=== PATIENT | male | born 1965 | race Caucasian/White ===

== ENCOUNTER 2021-01-14 08:02 | Inpatient (IN) | payer MEDICAID ==
[~2021-01-14] VITALS: Ht 170.2 cm; Wt 61.8 kg
[2021-01-14] MEDS ORDERED: SODIUM CHLORIDE 0.9% 2,000 ML IV ONE (08:15)
[2021-01-14] MEDS ORDERED: INSULIN REGULAR, HUMAN 100 UNITS/ML IVP ONE ×2 (08:15→11:45)
[2021-01-14 08:34] LABS: BASOPHILS % (AUTO) 0.7 % (0.0-2.0); EOSINOPHILS % (AUTO) 0 % (1.0-6.0); HEMATOCRIT 48.7 % (41-53); HEMOGLOBIN 13.6 g/dL (13.5-17.5); LYMPHOCYTES # (AUTO) 0.7 K/uL (1.0-4.8); LYMPHOCYTES % (AUTO) 3.5 % (22.0-44.0); MEAN CORPUSCULAR HEMOGLOBIN 30.7 pg (26.0-34.0); MEAN CORPUSCULAR HGB CONC 27.9 G/dL (31.0-37.0); MEAN CORPUSCULAR VOLUME 110 fL (80-100); MONOCYTES # (AUTO) 0.9 K/uL (0.1-1.0); MONOCYTES % (AUTO) 4.4 % (2.0-9.0); NEUTROPHILS # (AUTO) 19.2 K/uL (1.8-7.7); PLATELET COUNT (AUTO) 488 K/uL (150-450); RED BLOOD CELL COUNT(AUTO) 4.43 MIL/uL (4.50-5.90); RED CELL DISTRIBUTION WIDTH 16.4 % (11.5-14.5)
[2021-01-14] MEDS: OXYGEN THERAPY IH SCH ×2 (08:36→20:16)
[2021-01-14 08:40] LABS: NEUTROPHILS % (AUTO) 91.4 % (40.0-70.0)
[2021-01-14 08:52] LABS: ABG BASE EXCESS -21.2 mmol/L (-2.0-3.0); ABG CARBOXYHEMOGLOBIN 0.3 % (0.0-1.5); ABG HCO3 10.9 mmol/L (22.0-26.0); ABG METHEMOGLOBIN 0.3 % (0.0-1.5); ABG OXYGEN SATURATION 97.4 % (95.0-98.0); ABG OXYHEMOGLOBIN 96.8 % (94.0-100.0); ABG TOTAL HEMOGLOBIN 14.6 G/dL (12.0-18.0); PO2, ARTERIAL BG 122.7 mmHg (84.0-92.0); SOURCE, BLOOD GAS ARTERIAL; TEMPERATURE, FAHRENHEIT, BG 97.1 FAHREN (96.0-98.6)
[2021-01-14 08:55] LABS: ABG PH 7.209 (7.35-7.450)
[2021-01-14 08:56] LABS: ABG PCO2 18 mmHg (35-45); O2 DEVICE,BLOOD GAS ROOM AIR (ROOM AIR); SITE, BLOOD GAS RT RADIAL
[2021-01-14 08:58] LABS: LACTIC ACID 3.8 mmol/L (0.4-2.0)
[2021-01-14 09:00] LABS: CREATINE KINASE, TOTAL ONLY 62 U/L (39-308)
[2021-01-14 09:07] LABS: B-TYPE NATRIURETIC PEPTIDE 181 pg/mL (0-100)
[2021-01-14 09:16] LABS: LIPASE 4850 U/L (73-393)
[2021-01-14 09:23] LABS: ACETONE,BLOOD 1:16 (NEGATIVE)
[2021-01-14 09:27] LABS: ALANINE AMINOTRANSFERASE 21 U/L (12-78); ALBUMIN 2.7 g/dL (3.4-5.0); ALKALINE PHOSPHATASE 111 U/L (46-116); ANION GAP 41 mmol/L (8-16); ASPARTATE AMINOTRANSFERASE 17 U/L (15-37); BILIRUBIN,TOTAL 0.6 mg/dL (0.1-1.0); CALCIUM, TOTAL 10.7 mg/dL (8.8-10.5); CHLORIDE 110 mmol/L (98-107); GLOMERULAR FILTR. RATE CALC 21 mL/min (>60); POTASSIUM 4.2 mmol/L (3.5-5.1); SODIUM SERUM 159 mmol/L (136-145); TOTAL PROTEIN, SERUM 8.8 g/dL (6.4-8.2); UREA NITROGEN, BLOOD 78 mg/dL (7-18)
[2021-01-14 09:30] LABS: CARBON DIOXIDE 8 mmol/L (22-29)
[2021-01-14 09:47] LABS: GLUCOSE,RANDOM 1088 mg/dL (70-110)
[2021-01-14] MEDS ORDERED: 0.9% SODIUM CHLORIDE 10 ML SYRINGE IVP PRN (10:00)
[2021-01-14] MEDS ORDERED: ONDANSETRON HCL 4 MG/2 ML VIAL IVP PRN ×2 (10:00→11:00)
[2021-01-14] MEDS ORDERED: LORazepam 2 MG/ML VIAL IVP PRN (10:00)
[2021-01-14] MEDS ORDERED: SODIUM CHLORIDE 0.45% 1,000 ML IV ONE (10:00)
[2021-01-14 10:47] LABS: FREE T4 (FREE THYROXINE) 1.16 ng/dL (0.76-1.46); THYROID STIMULATING HORMONE 0.11 uIU/mL (0.36-3.74)
[2021-01-14 10:52] LABS: COVID AG,FIA SOURCE NASOPHARYNGEAL
[2021-01-14] MEDS ORDERED: INSULIN LISPRO 100 UNITS/ML SQ PRN (11:00)
[2021-01-14] MEDS ORDERED: BISACODYL 10 MG RECTAL RECTAL SUPPOSITORY PR PRN (11:00)
[2021-01-14] MEDS ORDERED: DEXTROSE 50%-WATER 25 GM/50 ML SYRINGE IVP PRN (11:00)
[2021-01-14 11:01] LABS: APPEARANCE,URINE TURBID (CLEAR); BILIRUBIN,URINE PRELIM. POSITIVE (NEGATIVE); GLUCOSE, URINE (UA) >=1000 mg/dL (NEGATIVE); KETONES,URINE 15 mg/dL (NEGATIVE); LEUKOCYTE ESTERASE ,URINE MODERATE (NEGATIVE); NITRATE,URINE NEGATIVE (NEGATIVE); OCCULT BLOOD,URINE MODERATE (NEGATIVE); PROTEIN,URINE SEE CONFIRM (NEGATIVE); UROBILINOGEN,URINE 0.2 mg/dL (<=1.0)
[2021-01-14 11:05] LABS: AMPHET/METH SCREEN,URINE NEGATIVE (NEGATIVE); BARBITURATE SCREEN, URINE NEGATIVE (NEGATIVE); BENZODIAZEPINES SCREEN,URINE NEGATIVE (NEGATIVE); CANNABINOID SCREEN,URINE NEGATIVE (NEGATIVE); COCAINE SCREEN,URINE NEGATIVE (NEGATIVE); METHADONE SCREEN, URINE NEGATIVE (NEGATIVE); OPIATE SCREEN,URINE NEGATIVE (NEGATIVE)
[2021-01-14 11:07] LABS: PHENCYCLIDINE SCREEN,URINE NEGATIVE (NEGATIVE)
[2021-01-14 11:09] LABS: SULFOSALICYLIC ACID,URINE 3+ (Negative)
[2021-01-14 11:10] LABS: BACTERIA,URINE Many /HPF (None Seen); WBC,URINE >100 /HPF (0-5)
[2021-01-14 11:20] LABS: GLUCOMETER DEV NAME(LOC) ERT.5; GLUCOSE,POINT OF CARE > 600 MG/DL (70-110)
[2021-01-14] MEDS ORDERED: CefTRIAXone 1 GM/DEXTROSE 50 ML IV ONE (11:30)
[2021-01-14] MEDS ORDERED: AZITHROMYCIN 500 MG/NS 250 ML IV ONE (11:30)
[2021-01-14] MEDS: PANTOPRAZOLE SODIUM 40 MG/VIAL IVP SCH (11:42)
[2021-01-14] MEDS: SODIUM CHLORIDE 0.45% 1,000 ML IV SCH ×2 (11:43→21:00)
[2021-01-14] MEDS ORDERED: SODIUM CHLORIDE 0.9% 1,000 ML IV SCH (11:45)
[2021-01-14] MEDS ORDERED: DEXTROSE 5%-0.45% SODIUM CHL 1,000 ML IV PRN (11:45)
[2021-01-14] MEDS ORDERED: SODIUM CHLORIDE 0.45% 1,000 ML IV PRN (11:45)
[2021-01-14] MEDS: INSULIN REGULAR, HUMAN 100 UNITS in SODIUM CHLORIDE 0.9% 99 ML IV PRN ×4 (12:10→20:15)
[2021-01-14] MEDS: POTASSIUM CHL 20 MEQ/0.45% NS 1,000 ML IV PRN (12:13)
[2021-01-14 12:18] LABS: CALCIUM, TOTAL 9.2 mg/dL (8.8-10.5); CREATININE 2.81 mg/dL (0.60-1.30)
[2021-01-14] MEDS: INSULIN REGULAR, HUMAN 100 UNITS/ML IVP PRN ×4 (12:40→16:41)
[2021-01-14 12:48] LABS: GLUCOMETER DEV NAME(LOC) ERT.5; GLUCOSE,POINT OF CARE 547 MG/DL (70-110)
[2021-01-14 13:11] LABS: GLUCOMETER DEV NAME(LOC) ERT.5; GLUCOSE,POINT OF CARE 590 MG/DL (70-110)
[2021-01-14 14:45] LABS: GLUCOMETER DEV NAME(LOC) ERT.5; GLUCOSE,POINT OF CARE 431 MG/DL (70-110)
[2021-01-14 16:00] VITALS: BP 105/71
[2021-01-14 16:13] LABS: CALCIUM, TOTAL 9.5 mg/dL (8.8-10.5); CREATININE 2.72 mg/dL (0.60-1.30); POTASSIUM 3.1 mmol/L (3.5-5.1)
[2021-01-14] MEDS: POTASSIUM CHLORIDE 40 MEQ in SODIUM CHLORIDE 0.45% 1,000 ML IV PRN (17:36)
[2021-01-14 18:15] LABS: GLUCOSE,POINT OF CARE 201 MG/DL (70-110)
[2021-01-14 18:15] LABS: GLUCOSE,POINT OF CARE 307 MG/DL (70-110)
[2021-01-14 18:15] LABS: GLUCOSE,POINT OF CARE 371 MG/DL (70-110)
[2021-01-14 20:00] VITALS: BP 127/85
[2021-01-14 20:04] LABS: GLUCOSE,POINT OF CARE 137 MG/DL (70-110)
[2021-01-14 20:06] LABS: CALCIUM, TOTAL 9.6 mg/dL (8.8-10.5); CREATININE 2.63 mg/dL (0.60-1.30); POTASSIUM 3.5 mmol/L (3.5-5.1)
[2021-01-14] MEDS: HEPARIN SODIUM,PORCINE 5,000 UNITS/ML VIAL SQ SCH (20:06)
[2021-01-14] MEDS ORDERED: DEXTROSE 50%-WATER 25 GM/50 ML SYRINGE IVP ONE (21:30)
[2021-01-14 21:44] LABS: CREATININE,URINE RANDOM 129.9 mg/dL (30.0-125.0)
[2021-01-14] MEDS: DEXTROSE 5%-WATER 1,000 ML IV SCH (22:01)
[2021-01-14] MEDS: ETHYL ALCOHOL 62% ANTISEPTIC NASAL INHALANT 0.6 ML AMPUL NASAL SCH (22:02)
[2021-01-14 22:52] LABS: GLUCOSE,POINT OF CARE 89 MG/DL (70-110)
[2021-01-14 22:52] LABS: GLUCOSE,POINT OF CARE 79 MG/DL (70-110)
[2021-01-15] VITALS: BP 129/76
[2021-01-15 00:47] LABS: GLUCOSE,POINT OF CARE 155 MG/DL (70-110)
[2021-01-15 02:19] LABS: CREATININE 2.67 mg/dL (0.60-1.30); POTASSIUM 4.2 mmol/L (3.5-5.1)
[2021-01-15] MEDS: POTASSIUM CHLORIDE 40 MEQ in SODIUM CHLORIDE 0.45% 1,000 ML IV PRN (02:28)
[2021-01-15 04:00] VITALS: BP 139/88
[2021-01-15] MEDS: DEXTROSE 5%-WATER 1,000 ML IV SCH ×4 (05:18→15:40)
[2021-01-15] MEDS: DEXTROSE 50%-WATER 25 GM/50 ML SYRINGE IVP PRN ×2 (05:58→23:54)
[2021-01-15 08:00] VITALS: BP 126/75
[2021-01-15 08:18] LABS: GLUCOSE,POINT OF CARE 184 MG/DL (70-110)
[2021-01-15 08:18] LABS: GLUCOSE,POINT OF CARE 92 MG/DL (70-110)
[2021-01-15 08:18] LABS: GLUCOSE,POINT OF CARE 113 MG/DL (70-110)
[2021-01-15 08:18] LABS: GLUCOSE,POINT OF CARE 135 MG/DL (70-110)
[2021-01-15 08:18] LABS: GLUCOSE,POINT OF CARE 191 MG/DL (70-110)
[2021-01-15 08:18] LABS: GLUCOSE,POINT OF CARE 70 MG/DL (70-110)
[2021-01-15 08:18] LABS: GLUCOSE,POINT OF CARE 172 MG/DL (70-110)
[2021-01-15 08:18] LABS: GLUCOSE,POINT OF CARE 144 MG/DL (70-110)
[2021-01-15] MEDS: PANTOPRAZOLE SODIUM 40 MG/VIAL IVP SCH (08:25)
[2021-01-15] MEDS: HEPARIN SODIUM,PORCINE 5,000 UNITS/ML VIAL SQ SCH ×2 (08:26→21:03)
[2021-01-15] MEDS: ETHYL ALCOHOL 62% ANTISEPTIC NASAL INHALANT 0.6 ML AMPUL NASAL SCH ×2 (08:26→21:03)
[2021-01-15 08:43] LABS: ALBUMIN 1.9 g/dL (3.4-5.0); BILIRUBIN,TOTAL 0.2 mg/dL (0.1-1.0); CALCIUM, TOTAL 8.9 mg/dL (8.8-10.5); CREATININE 2.55 mg/dL (0.60-1.30); MAGNESIUM 2.8 mg/dL (1.80-2.40); PHOSPHORUS 1.8 mg/dL (2.5-4.9); POTASSIUM 4.7 mmol/L (3.5-5.1); TOTAL PROTEIN, SERUM 6.8 g/dL (6.4-8.2)
[2021-01-15 09:14] LABS: GLUCOSE,POINT OF CARE 194 MG/DL (70-110)
[2021-01-15] MEDS: POTASSIUM CHL 20 MEQ/0.45% NS 1,000 ML IV PRN (09:17)
[2021-01-15 12:00] VITALS: BP 146/88
[2021-01-15 12:29] LABS: CALCIUM, TOTAL 8.8 mg/dL (8.8-10.5); CREATININE 2.4 mg/dL (0.60-1.30)
[2021-01-15] MEDS: CefTRIAXone 1 GM/DEXTROSE 50 ML IV SCH (13:32)
[2021-01-15 16:00] VITALS: BP 133/88
[2021-01-15 16:42] LABS: CALCIUM, TOTAL 8.6 mg/dL (8.8-10.5); CREATININE 2.34 mg/dL (0.60-1.30); POTASSIUM 4.6 mmol/L (3.5-5.1)
[2021-01-15 18:20] LABS: GLUCOSE,POINT OF CARE 87 MG/DL (70-110)
[2021-01-15 18:20] LABS: GLUCOSE,POINT OF CARE 112 MG/DL (70-110)
[2021-01-15 18:20] LABS: GLUCOSE,POINT OF CARE 71 MG/DL (70-110)
[2021-01-15 18:20] LABS: GLUCOSE,POINT OF CARE 107 MG/DL (70-110)
[2021-01-15 18:20] LABS: GLUCOSE,POINT OF CARE 132 MG/DL (70-110)
[2021-01-15 18:20] LABS: GLUCOSE,POINT OF CARE 74 MG/DL (70-110)
[2021-01-15 19:43] LABS: GLUCOSE,POINT OF CARE 130 MG/DL (70-110)
[2021-01-15 20:00] VITALS: BP 132/88
[2021-01-15 20:08] LABS: GLUCOSE,POINT OF CARE 167 MG/DL (70-110)
[2021-01-15 20:08] LABS: GLUCOSE,POINT OF CARE 190 MG/DL (70-110)
[2021-01-15 20:08] LABS: GLUCOSE,POINT OF CARE 138 MG/DL (70-110)
[2021-01-15 20:08] LABS: GLUCOSE,POINT OF CARE 205 MG/DL (70-110)
[2021-01-15 20:08] LABS: GLUCOSE,POINT OF CARE 170 MG/DL (70-110)
[2021-01-15 20:40] LABS: CALCIUM, TOTAL 9.1 mg/dL (8.8-10.5); CREATININE 2.25 mg/dL (0.60-1.30); POTASSIUM 3.8 mmol/L (3.5-5.1)
[2021-01-16] VITALS (7 sets, daily range): BP systolic 114–146; BP diastolic 65–91
[2021-01-16 01:23] LABS: CALCIUM, TOTAL 8.4 mg/dL (8.8-10.5); CREATININE 2.08 mg/dL (0.60-1.30); POTASSIUM 4.3 mmol/L (3.5-5.1)
[2021-01-16] MEDS ORDERED: INSULIN GLARGINE,HUM.REC.ANLOG 100 UNITS/ML SQ ONE (02:15)
[2021-01-16 05:23] LABS: GLUCOSE,POINT OF CARE 62 MG/DL (70-110)
[2021-01-16 05:23] LABS: GLUCOSE,POINT OF CARE 299 MG/DL (70-110)
[2021-01-16 05:23] LABS: GLUCOSE,POINT OF CARE 285 MG/DL (70-110)
[2021-01-16 05:23] LABS: GLUCOSE,POINT OF CARE 172 MG/DL (70-110)
[2021-01-16 05:23] LABS: GLUCOSE,POINT OF CARE 327 MG/DL (70-110)
[2021-01-16 06:27] LABS: CALCIUM, TOTAL 8.3 mg/dL (8.8-10.5); CREATININE 2.03 mg/dL (0.60-1.30)
[2021-01-16] MEDS: PANTOPRAZOLE SODIUM 40 MG/VIAL IVP SCH (08:14)
[2021-01-16] MEDS: ETHYL ALCOHOL 62% ANTISEPTIC NASAL INHALANT 0.6 ML AMPUL NASAL SCH ×2 (08:14→20:58)
[2021-01-16] MEDS: HEPARIN SODIUM,PORCINE 5,000 UNITS/ML VIAL SQ SCH ×2 (08:15→20:57)
[2021-01-16 08:59] LABS: HEMATOCRIT 40.3 % (41-53); HEMOGLOBIN 12.8 g/dL (13.5-17.5); MEAN CORPUSCULAR HEMOGLOBIN 30.5 pg (26.0-34.0); MEAN CORPUSCULAR HGB CONC 31.8 G/dL (31.0-37.0); MEAN CORPUSCULAR VOLUME 96 fL (80-100); MONOCYTES # (AUTO) 0.4 K/uL (0.1-1.0); PLATELET COUNT (AUTO) 212 K/uL (150-450); RED CELL DISTRIBUTION WIDTH 15.3 % (11.5-14.5)
[2021-01-16 10:00] LABS: BASOPHILS % (AUTO) 0.3 % (0.0-2.0); EOSINOPHILS % (AUTO) 0.6 % (1.0-6.0); LYMPHOCYTES % (AUTO) 7.3 % (22.0-44.0); MONOCYTES % (AUTO) 2.8 % (2.0-9.0); NEUTROPHILS # (AUTO) 12.3 K/uL (1.8-7.7)
[2021-01-16 10:08] LABS: CALCIUM, TOTAL 8.7 mg/dL (8.8-10.5); CREATININE 1.91 mg/dL (0.60-1.30); POTASSIUM 4.2 mmol/L (3.5-5.1)
[2021-01-16] MEDS ORDERED: DEXTROSE 50%-WATER 25 GM/50 ML SYRINGE IVP PRN (10:15)
[2021-01-16] MEDS: INSULIN GLARGINE,HUM.REC.ANLOG 100 UNITS/ML SQ SCH ×2 (11:29→20:58)
[2021-01-16] MEDS: INSULIN LISPRO 100 UNITS/ML SQ PRN ×2 (11:30→17:27)
[2021-01-16] MEDS ORDERED: SODIUM CHLORIDE 0.9% 1,000 ML ONE (11:46)
[2021-01-16] MEDS: CefTRIAXone 1 GM/DEXTROSE 50 ML IV SCH (11:50)
[2021-01-16] MEDS: SODIUM CHLORIDE 38.5 MEQ in WATER FOR INJECTION,STERILE 1,000 ML IV SCH ×2 (11:51→22:59)
[2021-01-16] MEDS ORDERED: SODIUM CHLORIDE 0.9% 250 ML IV ONE ×2 (11:52→18:31)
[2021-01-16 14:02] LABS: CALCIUM, TOTAL 8.7 mg/dL (8.8-10.5); CREATININE 1.87 mg/dL (0.60-1.30); POTASSIUM 3.7 mmol/L (3.5-5.1)
[2021-01-16] MEDS ORDERED: VANCOMYCIN HCL 1 GM/D5% WATER 200 ML IV ONE (17:15)
[2021-01-16 17:42] LABS: CALCIUM, TOTAL 8.8 mg/dL (8.8-10.5); CREATININE 1.82 mg/dL (0.60-1.30)
[2021-01-16 21:11] LABS: CALCIUM, TOTAL 8.7 mg/dL (8.8-10.5); CREATININE 1.75 mg/dL (0.60-1.30); POTASSIUM 3.8 mmol/L (3.5-5.1)
[2021-01-16] MEDS: ACETAMINOPHEN 325 MG TABLET PO PRN (23:35)
[2021-01-17] VITALS (7 sets, daily range): BP systolic 101–131; BP diastolic 64–87
[2021-01-17 00:28] LABS: CALCIUM, TOTAL 8.7 mg/dL (8.8-10.5); CREATININE 1.64 mg/dL (0.60-1.30); POTASSIUM 3.6 mmol/L (3.5-5.1)
[2021-01-17] MEDS: INSULIN LISPRO 100 UNITS/ML SQ PRN ×3 (05:38→17:40)
[2021-01-17 07:26] LABS: CALCIUM, TOTAL 9.7 mg/dL (8.8-10.5); CREATININE 1.66 mg/dL (0.60-1.30); POTASSIUM 3.5 mmol/L (3.5-5.1)
[2021-01-17] MEDS: VANCOMYCIN HCL 1 GM/D5% WATER 200 ML IV SCH (08:28)
[2021-01-17] MEDS: PANTOPRAZOLE SODIUM 40 MG/VIAL IVP SCH (08:31)
[2021-01-17] MEDS: HEPARIN SODIUM,PORCINE 5,000 UNITS/ML VIAL SQ SCH ×2 (08:31→21:30)
[2021-01-17] MEDS: INSULIN GLARGINE,HUM.REC.ANLOG 100 UNITS/ML SQ SCH ×4 (08:38→22:08)
[2021-01-17] MEDS: SODIUM CHLORIDE 38.5 MEQ in WATER FOR INJECTION,STERILE 1,000 ML IV SCH (08:39)
[2021-01-17] MEDS: ETHYL ALCOHOL 62% ANTISEPTIC NASAL INHALANT 0.6 ML AMPUL NASAL SCH ×2 (08:39→21:30)
[2021-01-17] MEDS: ACETAMINOPHEN 325 MG TABLET PO PRN (08:39)
[2021-01-17 08:48] LABS: GLUCOMETER DEV NAME(LOC) 5S.2B; GLUCOSE,POINT OF CARE 333 MG/DL (70-110)
[2021-01-17] MEDS ORDERED: INSULIN GLARGINE,HUM.REC.ANLOG 100 UNITS/ML SQ SCH (09:00)
[2021-01-17] MEDS ORDERED: SODIUM CHLORIDE 0.9% 100 ML ONE (09:06)
[2021-01-17 10:09] LABS: CALCIUM, TOTAL 8.9 mg/dL (8.8-10.5); CREATININE 1.5 mg/dL (0.60-1.30); POTASSIUM 3.3 mmol/L (3.5-5.1)
[2021-01-17] MEDS: POTASSIUM CHL 10 MEQ/WATER 50 ML IV SCH ×4 (12:56→18:02)
[2021-01-17 14:11] LABS: CALCIUM, TOTAL 9.1 mg/dL (8.8-10.5); CREATININE 1.62 mg/dL (0.60-1.30); POTASSIUM 3.9 mmol/L (3.5-5.1)
[2021-01-17 17:22] LABS: GLUCOMETER DEV NAME(LOC) 5S.2B; GLUCOSE,POINT OF CARE 317 MG/DL (70-110)
[2021-01-17 17:23] LABS: GLUCOMETER DEV NAME(LOC) 5S.2B; GLUCOSE,POINT OF CARE 228 MG/DL (70-110)
[2021-01-17 18:16] LABS: CALCIUM, TOTAL 8.9 mg/dL (8.8-10.5); CREATININE 1.53 mg/dL (0.60-1.30); POTASSIUM 3.5 mmol/L (3.5-5.1)
[2021-01-17 18:41] LABS: GLUCOMETER DEV NAME(LOC) 5S.1; GLUCOSE,POINT OF CARE 165 MG/DL (70-110)
[2021-01-17 19:35] LABS: POTASSIUM,URINE RANDOM 26 mmol/L (12-75); PROTEIN,URINE RANDOM 82 mg/dL (0-11.9); SODIUM,URINE RANDOM 28 mmol/l (20-110)
[2021-01-17 21:13] LABS: CALCIUM, TOTAL 8.9 mg/dL (8.8-10.5); CREATININE 1.38 mg/dL (0.60-1.30); POTASSIUM 3.6 mmol/L (3.5-5.1)
[2021-01-17] MEDS ORDERED: HYDROCODONE/ACETAMINOPHEN 5-325 MG TABLET PO ONE (22:00)
[2021-01-17 22:53] LABS: GLUCOMETER DEV NAME(LOC) 5S.1; GLUCOSE,POINT OF CARE 162 MG/DL (70-110)
[2021-01-18] MEDS: SODIUM CHLORIDE 38.5 MEQ in WATER FOR INJECTION,STERILE 1,000 ML IV SCH ×3 (01:27→17:30)
[2021-01-18 03:46] VITALS: BP 118/73
[2021-01-18 06:50] LABS: CALCIUM, TOTAL 8.8 mg/dL (8.8-10.5); CREATININE 1.26 mg/dL (0.60-1.30); VANCOMYCIN,RANDOM 15.5 mcg/mL (25.0-50.0)
[2021-01-18 07:27] VITALS: BP 114/65
[2021-01-18] MEDS: INSULIN GLARGINE,HUM.REC.ANLOG 100 UNITS/ML SQ SCH ×2 (08:57→20:38)
[2021-01-18] MEDS ORDERED: POTASSIUM CHLORIDE 20 MEQ ER TABLET PO ONE ×2 (09:00→12:00)
[2021-01-18 09:02] LABS: GLUCOMETER DEV NAME(LOC) 5S.1; GLUCOSE,POINT OF CARE 64 MG/DL (70-110)
[2021-01-18 09:02] LABS: GLUCOMETER DEV NAME(LOC) 5S.1; GLUCOSE,POINT OF CARE 109 MG/DL (70-110)
[2021-01-18] MEDS ORDERED: SODIUM CHLORIDE 0.9% 100 ML ONE (09:50)
[2021-01-18] MEDS: ETHYL ALCOHOL 62% ANTISEPTIC NASAL INHALANT 0.6 ML AMPUL NASAL SCH ×2 (10:19→20:45)
[2021-01-18] MEDS: HEPARIN SODIUM,PORCINE 5,000 UNITS/ML VIAL SQ SCH ×2 (10:19→20:37)
[2021-01-18] MEDS: PANTOPRAZOLE SODIUM 40 MG/VIAL IVP SCH (10:19)
[2021-01-18] MEDS: VANCOMYCIN HCL 1 GM/D5% WATER 200 ML IV SCH (10:27)
[2021-01-18 11:38] VITALS: BP 112/73
[2021-01-18 12:04] LABS: GLUCOMETER DEV NAME(LOC) 5N.3; GLUCOSE,POINT OF CARE 227 MG/DL (70-110)
[2021-01-18] MEDS: INSULIN LISPRO 100 UNITS/ML SQ PRN ×3 (12:13→20:39)
[2021-01-18 14:09] LABS: GLUCOMETER DEV NAME(LOC) 5S.1; GLUCOSE,POINT OF CARE 238 MG/DL (70-110)
[2021-01-18 15:52] VITALS: BP_SYST 104; BP_DIAS 7; BP_DIAS 72
[2021-01-18 17:53] LABS: GLUCOMETER DEV NAME(LOC) 5S.1; GLUCOSE,POINT OF CARE 203 MG/DL (70-110)
[2021-01-18 19:30] VITALS: BP 103/66
[2021-01-18 20:25] LABS: GLUCOMETER DEV NAME(LOC) 5N.3; GLUCOSE,POINT OF CARE 342 MG/DL (70-110)
[2021-01-18 21:03] LABS: CALCIUM, TOTAL 8.9 mg/dL (8.8-10.5); CREATININE 1.54 mg/dL (0.60-1.30)
[2021-01-18 21:06] LABS: PHOSPHORUS 2.9 mg/dL (2.5-4.9)
[2021-01-18] MEDS ORDERED: CYCLOBENZAPRINE HCL 10 MG TABLET PO ONE (21:30)
[2021-01-19 00:06] VITALS: BP 127/79
[2021-01-19] MEDS: SODIUM CHLORIDE 38.5 MEQ in WATER FOR INJECTION,STERILE 1,000 ML IV SCH ×3 (02:32→22:28)
[2021-01-19 03:58] VITALS: BP 128/78
[2021-01-19 05:02] LABS: GLUCOMETER DEV NAME(LOC) 5N.3; GLUCOSE,POINT OF CARE 79 MG/DL (70-110)
[2021-01-19 07:31] VITALS: BP 119/65
[2021-01-19 07:50] LABS: ANION GAP 11 mmol/L (8-16); CALCIUM, TOTAL 8.9 mg/dL (8.8-10.5); CARBON DIOXIDE 23 mmol/L (22-29); CHLORIDE 117 mmol/L (98-107); CREATININE 1.24 mg/dL (0.60-1.30); GLOMERULAR FILTR. RATE CALC > 60 mL/min (>60); GLUCOSE,RANDOM 79 mg/dL (70-110); POTASSIUM 3.6 mmol/L (3.5-5.1); SODIUM SERUM 151 mmol/L (136-145); UREA NITROGEN, BLOOD 19 mg/dL (7-18)
[2021-01-19] MEDS: VANCOMYCIN HCL 1 GM/D5% WATER 200 ML IV SCH (08:13)
[2021-01-19] MEDS: HEPARIN SODIUM,PORCINE 5,000 UNITS/ML VIAL SQ SCH ×2 (08:14→20:30)
[2021-01-19] MEDS: PANTOPRAZOLE SODIUM 40 MG/VIAL IVP SCH (08:14)
[2021-01-19] MEDS: ETHYL ALCOHOL 62% ANTISEPTIC NASAL INHALANT 0.6 ML AMPUL NASAL SCH ×2 (08:14→20:29)
[2021-01-19] MEDS: ACETAMINOPHEN 325 MG TABLET PO PRN ×2 (08:14→20:30)
[2021-01-19] MEDS ORDERED: POTASSIUM CHLORIDE 20 MEQ ER TABLET PO ONE (08:45)
[2021-01-19 11:17] VITALS: BP 120/74
[2021-01-19] MEDS: INSULIN LISPRO 100 UNITS/ML SQ PRN ×3 (11:17→21:14)
[2021-01-19 11:19] LABS: GLUCOMETER DEV NAME(LOC) 5N.3; GLUCOSE,POINT OF CARE 328 MG/DL (70-110)
[2021-01-19 16:25] VITALS: BP 116/68
[2021-01-19 18:28] LABS: GLUCOMETER DEV NAME(LOC) 5N.1C; GLUCOSE,POINT OF CARE 331 MG/DL (70-110)
[2021-01-19 19:44] VITALS: BP 127/76
[2021-01-19] MEDS: INSULIN GLARGINE,HUM.REC.ANLOG 100 UNITS/ML SQ SCH (21:13)
[2021-01-20] VITALS (7 sets, daily range): BP systolic 109–129; BP diastolic 60–79
[2021-01-20 00:40] LABS: GLUCOMETER DEV NAME(LOC) 5N.1C; GLUCOSE,POINT OF CARE 241 MG/DL (70-110)
[2021-01-20 05:44] LABS: GLUCOMETER DEV NAME(LOC) 5N.1C; GLUCOSE,POINT OF CARE 181 MG/DL (70-110)
[2021-01-20] MEDS: INSULIN LISPRO 100 UNITS/ML SQ PRN ×3 (05:45→21:05)
[2021-01-20 05:50] LABS: ANION GAP 8 mmol/L (8-16); CALCIUM, TOTAL 8.8 mg/dL (8.8-10.5); CARBON DIOXIDE 25 mmol/L (22-29); CHLORIDE 114 mmol/L (98-107); CREATININE 1.12 mg/dL (0.60-1.30); GLOMERULAR FILTR. RATE CALC > 60 mL/min (>60); GLUCOSE,RANDOM 202 mg/dL (70-110); POTASSIUM 3.8 mmol/L (3.5-5.1); SODIUM SERUM 147 mmol/L (136-145); UREA NITROGEN, BLOOD 14 mg/dL (7-18); VANCOMYCIN,RANDOM 12.7 mcg/mL (25.0-50.0)
[2021-01-20] MEDS: SODIUM CHLORIDE 38.5 MEQ in WATER FOR INJECTION,STERILE 1,000 ML IV SCH ×3 (06:41→22:17)
[2021-01-20] MEDS: ETHYL ALCOHOL 62% ANTISEPTIC NASAL INHALANT 0.6 ML AMPUL NASAL SCH ×2 (09:00→21:02)
[2021-01-20] MEDS: HEPARIN SODIUM,PORCINE 5,000 UNITS/ML VIAL SQ SCH ×2 (09:31→21:02)
[2021-01-20] MEDS: PANTOPRAZOLE SODIUM 40 MG/VIAL IVP SCH (09:32)
[2021-01-20] MEDS: VANCOMYCIN HCL 1 GM/D5% WATER 200 ML IV SCH (09:32)
[2021-01-20] MEDS ORDERED: BENZOCAINE/MENTHOL LOZENGE PO PRN (12:30)
[2021-01-20] MEDS ORDERED: INSULIN LISPRO 100 UNITS/ML SQ ONE (13:00)
[2021-01-20 20:14] LABS: GLUCOMETER DEV NAME(LOC) 5N.1C; GLUCOSE,POINT OF CARE 272 MG/DL (70-110)
[2021-01-20] MEDS: INSULIN GLARGINE,HUM.REC.ANLOG 100 UNITS/ML SQ SCH (21:05)
[2021-01-21 00:47] LABS: GLUCOMETER DEV NAME(LOC) 5N.1C; GLUCOSE,POINT OF CARE 323 MG/DL (70-110)
[2021-01-21 00:47] LABS: GLUCOMETER DEV NAME(LOC) 5S.1; GLUCOSE,POINT OF CARE 432 MG/DL (70-110)
[2021-01-21 04:35] VITALS: BP 121/67
[2021-01-21] MEDS: SODIUM CHLORIDE 38.5 MEQ in WATER FOR INJECTION,STERILE 1,000 ML IV SCH ×2 (05:52→13:14)
[2021-01-21 07:14] LABS: GLUCOMETER DEV NAME(LOC) 5S.1; GLUCOSE,POINT OF CARE 144 MG/DL (70-110)
[2021-01-21 07:20] LABS: ANION GAP 6 mmol/L (8-16); CALCIUM, TOTAL 8.8 mg/dL (8.8-10.5); CARBON DIOXIDE 27 mmol/L (22-29); CHLORIDE 111 mmol/L (98-107); CREATININE 1.13 mg/dL (0.60-1.30); GLOMERULAR FILTR. RATE CALC > 60 mL/min (>60); GLUCOSE,RANDOM 157 mg/dL (70-110); POTASSIUM 3.5 mmol/L (3.5-5.1); SODIUM SERUM 144 mmol/L (136-145); UREA NITROGEN, BLOOD 9 mg/dL (7-18)
[2021-01-21 08:04] VITALS: BP 112/64
[2021-01-21] MEDS: VANCOMYCIN HCL 1 GM/D5% WATER 200 ML IV SCH (08:20)
[2021-01-21] MEDS: PANTOPRAZOLE SODIUM 40 MG/VIAL IVP SCH (08:20)
[2021-01-21] MEDS: ETHYL ALCOHOL 62% ANTISEPTIC NASAL INHALANT 0.6 ML AMPUL NASAL SCH ×2 (08:21→20:47)
[2021-01-21] MEDS: HEPARIN SODIUM,PORCINE 5,000 UNITS/ML VIAL SQ SCH ×2 (08:21→20:47)
[2021-01-21] MEDS: INSULIN GLARGINE,HUM.REC.ANLOG 100 UNITS/ML SQ SCH ×2 (09:08→20:49)
[2021-01-21] MEDS: INSULIN LISPRO 100 UNITS/ML SQ PRN ×3 (11:49→20:50)
[2021-01-21 12:10] VITALS: BP 105/51
[2021-01-21 12:47] LABS: GLUCOMETER DEV NAME(LOC) 5N.1C; GLUCOSE,POINT OF CARE 294 MG/DL (70-110)
[2021-01-21 15:37] LABS: CALCIUM, TOTAL 8.6 mg/dL (8.8-10.5); CREATININE 1.34 mg/dL (0.60-1.30); POTASSIUM 3.7 mmol/L (3.5-5.1)
[2021-01-21 16:37] VITALS: BP 119/74
[2021-01-21] MEDS ORDERED: SODIUM CHLORIDE 0.9% 250 ML IV ONE (17:25)
[2021-01-21] MEDS: CeFAZolin 1 GM/DEXTROSE 50 ML IV SCH (17:32)
[2021-01-21 20:09] VITALS: BP 109/59
[2021-01-22 00:15] LABS: GLUCOMETER DEV NAME(LOC) 5S.1; GLUCOSE,POINT OF CARE 365 MG/DL (70-110)
[2021-01-22 00:15] LABS: GLUCOMETER DEV NAME(LOC) 5N.1C; GLUCOSE,POINT OF CARE 249 MG/DL (70-110)
[2021-01-22 00:18] VITALS: BP 128/73
[2021-01-22] MEDS: CeFAZolin 1 GM/DEXTROSE 50 ML IV SCH ×3 (00:22→15:20)
[2021-01-22] MEDS ORDERED: SODIUM CHLORIDE 0.9% 250 ML IV ONE (02:40)
[2021-01-22] MEDS: INSULIN LISPRO 100 UNITS/ML SQ PRN ×4 (06:26→20:30)
[2021-01-22 06:38] LABS: ANION GAP 7 mmol/L (8-16); CALCIUM, TOTAL 8.8 mg/dL (8.8-10.5); CARBON DIOXIDE 25 mmol/L (22-29); CHLORIDE 109 mmol/L (98-107); CREATININE 1.24 mg/dL (0.60-1.30); GLOMERULAR FILTR. RATE CALC > 60 mL/min (>60); GLUCOSE,RANDOM 287 mg/dL (70-110); POTASSIUM 3.5 mmol/L (3.5-5.1); SODIUM SERUM 141 mmol/L (136-145); UREA NITROGEN, BLOOD 11 mg/dL (7-18)
[2021-01-22 07:31] LABS: GLUCOMETER DEV NAME(LOC) 5N.1C; GLUCOSE,POINT OF CARE 249 MG/DL (70-110)
[2021-01-22] MEDS: ETHYL ALCOHOL 62% ANTISEPTIC NASAL INHALANT 0.6 ML AMPUL NASAL SCH ×2 (07:58→20:27)
[2021-01-22] MEDS: HEPARIN SODIUM,PORCINE 5,000 UNITS/ML VIAL SQ SCH ×2 (07:59→20:27)
[2021-01-22] MEDS: PANTOPRAZOLE SODIUM 40 MG/VIAL IVP SCH (07:59)
[2021-01-22 08:02] VITALS: BP 110/66
[2021-01-22] MEDS: INSULIN GLARGINE,HUM.REC.ANLOG 100 UNITS/ML SQ SCH ×2 (08:07→20:29)
[2021-01-22 11:16] VITALS: BP 121/66
[2021-01-22 15:29] VITALS: BP 133/80
[2021-01-22] MEDS ORDERED: POTASSIUM CHLORIDE 20 MEQ ER TABLET PO ONE (15:30)
[2021-01-22 18:11] LABS: GLUCOMETER DEV NAME(LOC) 5S.2B; GLUCOSE,POINT OF CARE 364 MG/DL (70-110)
[2021-01-22 18:12] LABS: GLUCOMETER DEV NAME(LOC) 5S.1; GLUCOSE,POINT OF CARE 277 MG/DL (70-110)
[2021-01-22 19:39] VITALS: BP 118/67
[2021-01-22 21:15] LABS: GLUCOMETER DEV NAME(LOC) 5S.1; GLUCOSE,POINT OF CARE 338 MG/DL (70-110)
[2021-01-22 23:43] VITALS: BP 118/61
[2021-01-23] MEDS: CeFAZolin 1 GM/DEXTROSE 50 ML IV SCH ×4 (00:02→23:27)
[2021-01-23 05:12] VITALS: BP 117/72
[2021-01-23] MEDS: INSULIN LISPRO 100 UNITS/ML SQ PRN ×5 (05:25→21:26)
[2021-01-23 05:56] LABS: GLUCOMETER DEV NAME(LOC) 5S.1; GLUCOSE,POINT OF CARE 157 MG/DL (70-110)
[2021-01-23] MEDS: PANTOPRAZOLE SODIUM 40 MG/VIAL IVP SCH (08:07)
[2021-01-23] MEDS: HEPARIN SODIUM,PORCINE 5,000 UNITS/ML VIAL SQ SCH ×2 (08:08→21:22)
[2021-01-23] MEDS: ETHYL ALCOHOL 62% ANTISEPTIC NASAL INHALANT 0.6 ML AMPUL NASAL SCH ×2 (08:08→21:21)
[2021-01-23] MEDS: INSULIN GLARGINE,HUM.REC.ANLOG 100 UNITS/ML SQ SCH ×2 (08:40→21:23)
[2021-01-23 11:36] VITALS: BP 122/68
[2021-01-23 15:20] VITALS: BP 130/75
[2021-01-23 19:48] VITALS: BP 92/49
[2021-01-23] MEDS ORDERED: SODIUM CHLORIDE 0.9% 250 ML IV ONE (23:26)
[2021-01-23 23:46] VITALS: BP 112/67
[2021-01-23 23:57] LABS: GLUCOMETER DEV NAME(LOC) 5S.2B; GLUCOSE,POINT OF CARE 375 MG/DL (70-110)
[2021-01-24 04:55] VITALS: BP 109/64
[2021-01-24] MEDS: INSULIN LISPRO 100 UNITS/ML SQ PRN ×3 (06:36→17:51)
[2021-01-24 06:50] LABS: GLUCOMETER DEV NAME(LOC) 5S.2B; GLUCOSE,POINT OF CARE 164 MG/DL (70-110)
[2021-01-24 06:50] LABS: GLUCOMETER DEV NAME(LOC) 5S.2B; GLUCOSE,POINT OF CARE 179 MG/DL (70-110)
[2021-01-24 07:06] LABS: ANION GAP 8 mmol/L (8-16); CALCIUM, TOTAL 9.2 mg/dL (8.8-10.5); CARBON DIOXIDE 29 mmol/L (22-29); CHLORIDE 105 mmol/L (98-107); CREATININE 1.18 mg/dL (0.60-1.30); GLOMERULAR FILTR. RATE CALC > 60 mL/min (>60); GLUCOSE,RANDOM 158 mg/dL (70-110); POTASSIUM 3.6 mmol/L (3.5-5.1); SODIUM SERUM 142 mmol/L (136-145); UREA NITROGEN, BLOOD 11 mg/dL (7-18)
[2021-01-24 07:15] VITALS: BP 106/62
[2021-01-24 08:16] LABS: GLUCOMETER DEV NAME(LOC) 5S.1; GLUCOSE,POINT OF CARE 338 MG/DL (70-110)
[2021-01-24] MEDS: PANTOPRAZOLE SODIUM 40 MG/VIAL IVP SCH (08:57)
[2021-01-24] MEDS: CeFAZolin 1 GM/DEXTROSE 50 ML IV SCH ×3 (08:57→23:54)
[2021-01-24] MEDS: ETHYL ALCOHOL 62% ANTISEPTIC NASAL INHALANT 0.6 ML AMPUL NASAL SCH ×2 (08:57→20:52)
[2021-01-24] MEDS: HEPARIN SODIUM,PORCINE 5,000 UNITS/ML VIAL SQ SCH ×2 (08:58→20:52)
[2021-01-24] MEDS: INSULIN GLARGINE,HUM.REC.ANLOG 100 UNITS/ML SQ SCH ×2 (09:02→20:52)
[2021-01-24 11:26] VITALS: BP 129/73
[2021-01-24 15:26] VITALS: BP 108/61
[2021-01-24 19:34] VITALS: BP 107/52
[2021-01-24 21:27] LABS: GLUCOMETER DEV NAME(LOC) 5S.1; GLUCOSE,POINT OF CARE 210 MG/DL (70-110)
[2021-01-24 21:28] LABS: GLUCOMETER DEV NAME(LOC) 5S.1; GLUCOSE,POINT OF CARE 134 MG/DL (70-110)
[2021-01-24 23:48] VITALS: BP 112/64
[2021-01-25 04:37] VITALS: BP 132/78
[2021-01-25] MEDS: INSULIN LISPRO 100 UNITS/ML SQ PRN ×3 (05:25→18:09)
[2021-01-25 06:35] LABS: ANION GAP 6 mmol/L (8-16); CALCIUM, TOTAL 8.9 mg/dL (8.8-10.5); CARBON DIOXIDE 29 mmol/L (22-29); CHLORIDE 106 mmol/L (98-107); CREATININE 1.13 mg/dL (0.60-1.30); GLOMERULAR FILTR. RATE CALC > 60 mL/min (>60); GLUCOSE,RANDOM 147 mg/dL (70-110); POTASSIUM 3.6 mmol/L (3.5-5.1); SODIUM SERUM 141 mmol/L (136-145); UREA NITROGEN, BLOOD 12 mg/dL (7-18)
[2021-01-25 07:22] VITALS: BP 126/73
[2021-01-25] MEDS: ETHYL ALCOHOL 62% ANTISEPTIC NASAL INHALANT 0.6 ML AMPUL NASAL SCH ×2 (09:05→20:19)
[2021-01-25] MEDS: CeFAZolin 1 GM/DEXTROSE 50 ML IV SCH (09:06)
[2021-01-25] MEDS: HEPARIN SODIUM,PORCINE 5,000 UNITS/ML VIAL SQ SCH ×2 (09:06→20:19)
[2021-01-25] MEDS: PANTOPRAZOLE SODIUM 40 MG/VIAL IVP SCH (09:06)
[2021-01-25] MEDS: INSULIN GLARGINE,HUM.REC.ANLOG 100 UNITS/ML SQ SCH ×2 (09:11→20:22)
[2021-01-25] MEDS ORDERED: POTASSIUM CHLORIDE 20 MEQ ER TABLET PO ONE (10:00)
[2021-01-25 11:41] VITALS: BP 128/78
[2021-01-25 11:52] LABS: GLUCOMETER DEV NAME(LOC) 5S.1; GLUCOSE,POINT OF CARE 285 MG/DL (70-110)
[2021-01-25 11:52] LABS: GLUCOMETER DEV NAME(LOC) 5S.2B; GLUCOSE,POINT OF CARE 301 MG/DL (70-110)
[2021-01-25 11:52] LABS: GLUCOMETER DEV NAME(LOC) 5S.2B; GLUCOSE,POINT OF CARE 150 MG/DL (70-110)
[2021-01-25 15:33] VITALS: BP 112/60
[2021-01-25] MEDS: CLINDAMYCIN HCL 300 MG CAPSULE PO SCH ×2 (18:07→23:40)
[2021-01-25 19:39] VITALS: BP 119/61
[2021-01-25 22:13] VITALS: BP 125/67
[2021-01-25 23:11] LABS: GLUCOMETER DEV NAME(LOC) 5S.1; GLUCOSE,POINT OF CARE 191 MG/DL (70-110)
[2021-01-25 23:11] LABS: GLUCOMETER DEV NAME(LOC) 5S.2B; GLUCOSE,POINT OF CARE 271 MG/DL (70-110)
[2021-01-26 05:07] VITALS: BP 127/76
[2021-01-26] MEDS: INSULIN LISPRO 100 UNITS/ML SQ PRN ×2 (05:58→12:00)
[2021-01-26 07:48] VITALS: BP 116/66
[2021-01-26] MEDS: HEPARIN SODIUM,PORCINE 5,000 UNITS/ML VIAL SQ SCH ×2 (08:53→20:59)
[2021-01-26] MEDS: CLINDAMYCIN HCL 300 MG CAPSULE PO SCH ×3 (08:53→23:43)
[2021-01-26] MEDS: PANTOPRAZOLE SODIUM 40 MG/VIAL IVP SCH (08:53)
[2021-01-26] MEDS: INSULIN GLARGINE,HUM.REC.ANLOG 100 UNITS/ML SQ SCH ×2 (08:54→21:09)
[2021-01-26] MEDS: ETHYL ALCOHOL 62% ANTISEPTIC NASAL INHALANT 0.6 ML AMPUL NASAL SCH ×2 (09:09→20:59)
[2021-01-26 09:29] LABS: EOSINOPHILS % (AUTO) 0.9 % (1.0-6.0); HEMOGLOBIN 9.5 g/dL (13.5-17.5); LYMPHOCYTES # (AUTO) 1.5 K/uL (1.0-4.8); MONOCYTES # (AUTO) 0.8 K/uL (0.1-1.0); RED CELL DISTRIBUTION WIDTH 14.2 % (11.5-14.5)
[2021-01-26 09:33] LABS: BASOPHILS % (AUTO) 0.4 % (0.0-2.0); HEMATOCRIT 28.4 % (41-53); LYMPHOCYTES % (AUTO) 12.7 % (22.0-44.0); MEAN CORPUSCULAR HEMOGLOBIN 31.4 pg (26.0-34.0); MEAN CORPUSCULAR HGB CONC 33.6 G/dL (31.0-37.0); MEAN CORPUSCULAR VOLUME 94 fL (80-100); MONOCYTES % (AUTO) 7.2 % (2.0-9.0); NEUTROPHILS % (AUTO) 78.8 % (40.0-70.0); RED BLOOD CELL COUNT(AUTO) 3.03 MIL/uL (4.50-5.90)
[2021-01-26 09:35] LABS: ANION GAP 4 mmol/L (8-16); CARBON DIOXIDE 30 mmol/L (22-29); CHLORIDE 106 mmol/L (98-107); CREATININE 1.09 mg/dL (0.60-1.30); GLOMERULAR FILTR. RATE CALC > 60 mL/min (>60); GLUCOSE,RANDOM 161 mg/dL (70-110); PHOSPHORUS 3.7 mg/dL (2.5-4.9); POTASSIUM 4.1 mmol/L (3.5-5.1); SODIUM SERUM 140 mmol/L (136-145); UREA NITROGEN, BLOOD 13 mg/dL (7-18)
[2021-01-26 09:37] LABS: PLATELET COUNT (AUTO) 776 K/uL (150-450)
[2021-01-26 12:51] LABS: GLUCOMETER DEV NAME(LOC) 6S.1; GLUCOSE,POINT OF CARE 194 MG/DL (70-110)
[2021-01-26 12:51] LABS: GLUCOMETER DEV NAME(LOC) 6S.1; GLUCOSE,POINT OF CARE 249 MG/DL (70-110)
[2021-01-26 12:51] LABS: GLUCOMETER DEV NAME(LOC) 6N.1; GLUCOSE,POINT OF CARE 120 MG/DL (70-110)
[2021-01-26 15:24] VITALS: BP 124/75
[2021-01-26 19:25] LABS: GLUCOMETER DEV NAME(LOC) 6N.1; GLUCOSE,POINT OF CARE 158 MG/DL (70-110)
[2021-01-26 19:50] VITALS: BP 119/74
[2021-01-26] MEDS: HYDROCORTISONE 1% 30 GM OINTMENT TP SCH (21:00)
[2021-01-27 00:32] LABS: GLUCOMETER DEV NAME(LOC) 6S.1; GLUCOSE,POINT OF CARE 104 MG/DL (70-110)
[2021-01-27 03:36] VITALS: BP 116/63
[2021-01-27] MEDS: INSULIN LISPRO 100 UNITS/ML SQ PRN ×4 (06:24→20:42)
[2021-01-27 06:49] LABS: GLUCOMETER DEV NAME(LOC) 6N.1; GLUCOSE,POINT OF CARE 121 MG/DL (70-110)
[2021-01-27 08:08] VITALS: BP 113/62
[2021-01-27] MEDS: PANTOPRAZOLE SODIUM 40 MG/VIAL IVP SCH (08:55)
[2021-01-27] MEDS: ETHYL ALCOHOL 62% ANTISEPTIC NASAL INHALANT 0.6 ML AMPUL NASAL SCH ×2 (08:55→20:42)
[2021-01-27] MEDS: CLINDAMYCIN HCL 300 MG CAPSULE PO SCH ×3 (08:55→23:37)
[2021-01-27] MEDS: HEPARIN SODIUM,PORCINE 5,000 UNITS/ML VIAL SQ SCH ×2 (08:56→20:42)
[2021-01-27] MEDS: HYDROCORTISONE 1% 30 GM OINTMENT TP SCH ×2 (08:57→20:43)
[2021-01-27] MEDS: INSULIN GLARGINE,HUM.REC.ANLOG 100 UNITS/ML SQ SCH ×2 (09:25→20:40)
[2021-01-27 13:55] LABS: GLUCOMETER DEV NAME(LOC) 6S.1; GLUCOSE,POINT OF CARE 232 MG/DL (70-110)
[2021-01-27 16:01] VITALS: BP 135/76
[2021-01-27 20:13] VITALS: BP 123/61
[2021-01-27 20:59] LABS: GLUCOMETER DEV NAME(LOC) 6S.1; GLUCOSE,POINT OF CARE 179 MG/DL (70-110)
[2021-01-27 23:51] LABS: GLUCOMETER DEV NAME(LOC) 6S.1; GLUCOSE,POINT OF CARE 164 MG/DL (70-110)
[2021-01-28] MEDS: ACETAMINOPHEN 325 MG TABLET PO PRN (00:02)
[2021-01-28 01:31] VITALS: BP 110/65
[2021-01-28 04:15] VITALS: BP 132/72
[2021-01-28 06:24] LABS: GLUCOMETER DEV NAME(LOC) 6N.1; GLUCOSE,POINT OF CARE 145 MG/DL (70-110)
[2021-01-28 06:36] LABS: GLUCOMETER DEV NAME(LOC) 6N.1; GLUCOSE,POINT OF CARE 122 MG/DL (70-110)
[2021-01-28 07:34] VITALS: BP 128/74
[2021-01-28] MEDS: CLINDAMYCIN HCL 300 MG CAPSULE PO SCH ×3 (09:44→23:05)
[2021-01-28] MEDS: PANTOPRAZOLE SODIUM 40 MG/VIAL IVP SCH (09:44)
[2021-01-28] MEDS: HEPARIN SODIUM,PORCINE 5,000 UNITS/ML VIAL SQ SCH ×2 (09:45→20:26)
[2021-01-28] MEDS: ETHYL ALCOHOL 62% ANTISEPTIC NASAL INHALANT 0.6 ML AMPUL NASAL SCH ×2 (09:47→20:26)
[2021-01-28] MEDS: INSULIN GLARGINE,HUM.REC.ANLOG 100 UNITS/ML SQ SCH ×2 (09:50→20:23)
[2021-01-28] MEDS: HYDROCORTISONE 1% 30 GM OINTMENT TP SCH ×2 (10:11→20:26)
[2021-01-28] MEDS: INSULIN LISPRO 100 UNITS/ML SQ PRN ×3 (11:28→20:23)
[2021-01-28 11:30] LABS: GLUCOMETER DEV NAME(LOC) 6N.1; GLUCOSE,POINT OF CARE 181 MG/DL (70-110)
[2021-01-28 11:38] VITALS: BP 107/61
[2021-01-28 15:30] VITALS: BP 114/64
[2021-01-28 20:02] VITALS: BP 104/56
[2021-01-28 20:37] LABS: GLUCOMETER DEV NAME(LOC) 6N.1; GLUCOSE,POINT OF CARE 343 MG/DL (70-110)
[2021-01-29 00:45] VITALS: BP 124/80
[2021-01-29 02:51] LABS: GLUCOMETER DEV NAME(LOC) 6S.1; GLUCOSE,POINT OF CARE 151 MG/DL (70-110)
[2021-01-29 04:02] VITALS: BP 100/60
[2021-01-29 06:54] LABS: GLUCOMETER DEV NAME(LOC) 6N.1; GLUCOSE,POINT OF CARE 90 MG/DL (70-110)
[2021-01-29 07:08] LABS: BASOPHILS % (AUTO) 0.3 % (0.0-2.0); EOSINOPHILS % (AUTO) 1.1 % (1.0-6.0); HEMATOCRIT 26.6 % (41-53); HEMOGLOBIN 8.7 g/dL (13.5-17.5); LYMPHOCYTES # (AUTO) 1.8 K/uL (1.0-4.8); MEAN CORPUSCULAR HEMOGLOBIN 30.8 pg (26.0-34.0); MEAN CORPUSCULAR HGB CONC 32.7 G/dL (31.0-37.0); MEAN CORPUSCULAR VOLUME 94 fL (80-100); MONOCYTES # (AUTO) 1.1 K/uL (0.1-1.0); MONOCYTES % (AUTO) 9.5 % (2.0-9.0); NEUTROPHILS # (AUTO) 8.2 K/uL (1.8-7.7); NEUTROPHILS % (AUTO) 73.1 % (40.0-70.0); PLATELET COUNT (AUTO) 613 K/uL (150-450); RED BLOOD CELL COUNT(AUTO) 2.83 MIL/uL (4.50-5.90); RED CELL DISTRIBUTION WIDTH 14.1 % (11.5-14.5)
[2021-01-29 07:30] LABS: ANION GAP 7 mmol/L (8-16); CARBON DIOXIDE 26 mmol/L (22-29); CHLORIDE 105 mmol/L (98-107); CREATININE 0.96 mg/dL (0.60-1.30); GLOMERULAR FILTR. RATE CALC > 60 mL/min (>60); GLUCOSE,RANDOM 96 mg/dL (70-110); PHOSPHORUS 4.2 mg/dL (2.5-4.9); POTASSIUM 3.5 mmol/L (3.5-5.1); SODIUM SERUM 138 mmol/L (136-145); UREA NITROGEN, BLOOD 11 mg/dL (7-18)
[2021-01-29 07:56] VITALS: BP 115/57
[2021-01-29] MEDS: INSULIN GLARGINE,HUM.REC.ANLOG 100 UNITS/ML SQ SCH ×2 (08:39→20:31)
[2021-01-29] MEDS: CLINDAMYCIN HCL 300 MG CAPSULE PO SCH ×3 (08:41→23:17)
[2021-01-29] MEDS: HEPARIN SODIUM,PORCINE 5,000 UNITS/ML VIAL SQ SCH ×2 (08:41→20:28)
[2021-01-29] MEDS: PANTOPRAZOLE SODIUM 40 MG/VIAL IVP SCH (08:42)
[2021-01-29] MEDS: ETHYL ALCOHOL 62% ANTISEPTIC NASAL INHALANT 0.6 ML AMPUL NASAL SCH ×2 (08:50→20:27)
[2021-01-29] MEDS: HYDROCORTISONE 1% 30 GM OINTMENT TP SCH ×2 (08:54→20:28)
[2021-01-29] MEDS: INSULIN LISPRO 100 UNITS/ML SQ PRN ×3 (11:43→20:31)
[2021-01-29 16:18] VITALS: BP 105/57
[2021-01-29 16:52] LABS: GLUCOMETER DEV NAME(LOC) 6N.1; GLUCOSE,POINT OF CARE 207 MG/DL (70-110)
[2021-01-29 16:52] LABS: GLUCOMETER DEV NAME(LOC) 6N.1; GLUCOSE,POINT OF CARE 140 MG/DL (70-110)
[2021-01-29 19:47] VITALS: BP 129/70
[2021-01-29 20:19] LABS: GLUCOMETER DEV NAME(LOC) 6S.1; GLUCOSE,POINT OF CARE 222 MG/DL (70-110)
[2021-01-29 20:27] LABS: GLUCOMETER DEV NAME(LOC) 6N.1; GLUCOSE,POINT OF CARE 179 MG/DL (70-110)
[2021-01-29] MEDS: ACETAMINOPHEN 325 MG TABLET PO PRN (20:28)
[2021-01-29 21:28] LABS: GLUCOSE,POINT OF CARE 271 MG/DL (70-110)
[2021-01-29 21:28] LABS: GLUCOSE,POINT OF CARE 267 MG/DL (70-110)
[2021-01-29 21:28] LABS: GLUCOSE,POINT OF CARE 285 MG/DL (70-110)
[2021-01-29 21:29] LABS: GLUCOSE,POINT OF CARE 72 MG/DL (70-110)
[2021-01-29 21:29] LABS: GLUCOSE,POINT OF CARE 235 MG/DL (70-110)
[2021-01-29 21:29] LABS: GLUCOSE,POINT OF CARE 248 MG/DL (70-110)
[2021-01-29 21:29] LABS: GLUCOSE,POINT OF CARE 100 MG/DL (70-110)
[2021-01-30 04:34] VITALS: BP 128/68
[2021-01-30 05:50] LABS: GLUCOMETER DEV NAME(LOC) 6N.1; GLUCOSE,POINT OF CARE 138 MG/DL (70-110)
[2021-01-30 08:19] VITALS: BP 121/64
[2021-01-30] MEDS: CLINDAMYCIN HCL 300 MG CAPSULE PO SCH ×2 (08:29→16:19)
[2021-01-30] MEDS: ETHYL ALCOHOL 62% ANTISEPTIC NASAL INHALANT 0.6 ML AMPUL NASAL SCH (08:30)
[2021-01-30] MEDS: HYDROCORTISONE 1% 30 GM OINTMENT TP SCH (08:51)
[2021-01-30] MEDS: PANTOPRAZOLE SODIUM 40 MG/VIAL IVP SCH (08:51)
[2021-01-30] MEDS: HEPARIN SODIUM,PORCINE 5,000 UNITS/ML VIAL SQ SCH (08:51)
[2021-01-30] MEDS: INSULIN GLARGINE,HUM.REC.ANLOG 100 UNITS/ML SQ SCH (08:59)
[2021-01-30] MEDS: INSULIN LISPRO 100 UNITS/ML SQ PRN (11:36)
[2021-01-30 13:18] LABS: GLUCOMETER DEV NAME(LOC) 6N.1; GLUCOSE,POINT OF CARE 204 MG/DL (70-110)
[2021-01-30] MEDS ORDERED: CLIN300C3 PO (13:19)
[2021-01-30] MEDS ORDERED: PRED1 PO (13:20)
[2021-01-30] MEDS ORDERED: INSLAN SQ (13:20)
[2021-01-30] MEDS ORDERED: HYDR30OI13 TP (13:23)
[2021-01-30] MEDS ORDERED: ACET650S24 PR (13:24)
[2021-01-30 16:00] VITALS: BP 119/62
== END 2021-01-30 17:38 | disposition home or self-care (01) | DRG 420 ==
LOC: EMS 08:07 → ICU 14:38 → 5S 01-16 21:50 → 6N 01-25 21:25
PROVIDERS: ADMIT Internal Medicine; ATTEND Internal Medicine
DX: E11.10 Type 2 diabetes mellitus with ketoacidosis without coma (principal); A41.01 Sepsis due to Methicillin susceptible Staphylococcus aureus; G93.41 Metabolic encephalopathy; N17.9 Acute kidney failure, unspecified; E87.0 Hyperosmolality and hypernatremia; L40.9 Psoriasis, unspecified; N39.0 Urinary tract infection, site not specified; E87.6 Hypokalemia; R53.81 Other malaise; R13.12 Dysphagia, oropharyngeal phase; Z20.822 Contact with and (suspected) exposure to COVID-19; D75.839 Thrombocytosis, unspecified; Z79.4 Long term (current) use of insulin; Z83.3 Family history of diabetes mellitus; Z87.891 Personal history of nicotine dependence
CPT/HCPCS: 36600; 51702; 70450; 71045; 72040; 76770; 80048; 80053; 80202; 81001; 81002; 82009; 82550; 82570; 82805; 82962; 83036; 83605; 83690; 83735; 83880; 83930; 83935; 84100; 84133; 84156; 84295; 84300; 84439; 84443; 84484; 84540; 85025; 87040; 87077; 87081; 87086; 87186; 87205; 92526; 92610; 93005; 97116; 97163; 97530; 99291; C9113; G0378; G0480; J0456; J0690; J0696; J1644; J1815; J2060; J3370; J3480; J7030; J7050; J7060; J7131; 36415-L1; 36415-TC